=== PATIENT | male | born 1965 | race Caucasian/White ===

== ENCOUNTER 2016-08-27 17:44 | Emergency (ER) | payer OTHER ==
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
[~2016-08-27 17:44] MED LIST: DYAZIDE 371 CAP 37.5; FLEXERIL; GABAPENTIN300 M2; HTN MED; HYDROCODON-ACE1 EA11; METFORMIN
== END 2016-08-27 18:25 | disposition home or self-care (01) ==
LOC: SED 17:44
DX: S40.012A Contusion of left shoulder, initial encounter (principal); E11.9 Type 2 diabetes mellitus without complications; I10 Essential (primary) hypertension; F17.210 Nicotine dependence, cigarettes, uncomplicated; V43.52XA Car driver injured in collision with other type car in traffic accident, initial encounter; Y92.410 Unspecified street and highway as the place of occurrence of the external cause
CPT/HCPCS: 73030; 99283